=== PATIENT | male | born 1980 | race Caucasian/White ===

== ENCOUNTER 2018-03-16 16:20 | Emergency (ER) | payer OTHER ==
[~2018-03-16] VITALS: Ht 177.8 cm; Wt 117.9 kg
[2018-03-16] MEDS ORDERED: PROAIR HFA8.5 GM (16:34)
[2018-03-16] MEDS ORDERED: SYMBICORT 16010.2 GM (16:34)
== END 2018-03-16 19:32 | disposition home or self-care (01) ==
LOC: ER 16:20
DX: J45.998 Other asthma (principal); J11.1 Influenza due to unidentified influenza virus with other respiratory manifestations